=== PATIENT | female | born 1935 | race Caucasian/White ===

== ENCOUNTER 2017-02-25 19:18 | Emergency (ER) | payer OTHER ==
[~2017-02-25] VITALS: Ht 167.6 cm; Wt 92.9 kg
[~2017-02-25 19:18] MED LIST: ASPIR-LOW81 MG PO; CORICIDIN HBP1 EACH PO; LOPRESSOR100 M1 PO; LOSARTAN POTAS100 MG PO; MECLIZINE HCL25 MG PO; MELOXICAM15 MG PO; NORVASC10 MG PO; OXYBUTYNIN CHLOR5 MG PO; ZOFRAN4 MG PO
[2017-02-25] MEDS ORDERED: ULTRACET1 TABLET PO (22:00)
[2017-02-25 22:21] VITALS: BP 193/98
== END 2017-02-25 22:22 | disposition home or self-care (01) ==
LOC: EME 19:18
DX: G89.29 Other chronic pain (principal); M54.5 Low back pain; M71.22 Synovial cyst of popliteal space [Baker], left knee; E78.5 Hyperlipidemia, unspecified; I10 Essential (primary) hypertension; F17.200 Nicotine dependence, unspecified, uncomplicated
CPT/HCPCS: 72100; 93971; 99281; 99284; J1100